=== PATIENT | female | born 1965 | race Caucasian/White ===

== ENCOUNTER → 2021-01-30 | Day surgery (SDC) | payer OTHER ==
[~2021-01-30] MED LIST: FLUO40CA2 PO; IV RINGERS,LACTATED 1000ML 1,000 ML IV ONE; LIDOCAINE 2% PF 5 ML VIAL. ONE; OXCA300T3 PO; PROPOFOL 10 MG/ML (20ML) VIAL. IV ONE
[2021-01-30 09:49] VITALS: BP 99/63
--- NOTE | 2021-02-01 14:09 | PATHOLOGY ---
[facility] Accession Number: [id number] . 01 Material submitted: . rectum - RECTAL POLYP BIOPSY . 01 Clinical history: . POSITIVE COLOGUARD . 02 Diagnosis: Colorectal biopsies, rectal polyps: - Hyperplastic polyps. LBQ 02/01/2021 1157 Local . 02 Comment: There are no adenomatous changes or evidence of malignancy. (JPM/db; 02/01/2021) . 02 Electronically signed: . Prasad Romero MD, Pathologist NPI- [id number] . 01 Gross description: . Received in formalin labeled "Snow, Beba and Rectal polyp biopsy". Received are 2 mason-frias soft tissue fragments ranging from 0.2-0.3 cm. Specimen is entirely submitted in cassette A1.([facility]; 01/31/2021) [facility] 01/31/2021 1604 Local . 02 Pathologist provided ICD-10: K62.1 . 02 CPT . 310635 Specimen Comment: A courtesy copy of this report has been sent to [phone], [phone] Specimen Comment: [id number] Specimen Comment: Report sent to / DR GARCIAS Specimen Comment: A duplicate report has been generated due to demographic updates. Performed at: 01 [facility] [address], [place], [place] [id number] MD Herminio Falcon MD Phone: [phone] Performed at: 02 [facility] [address] [place], [place] [id number] MD Prasad Romero MD Phone: [phone]
== END | disposition home or self-care (01) ==
LOC: ENDOS 08:00
PROVIDERS: ATTEND Internal Medicine Gastroenterology
DX: R19.5 Other fecal abnormalities (principal); K64.0 First degree hemorrhoids; K63.89 Other specified diseases of intestine; K62.1 Rectal polyp; K57.30 Diverticulosis of large intestine without perforation or abscess without bleeding; Z86.010 Personal history of colon polyps; F41.9 Anxiety disorder, unspecified; Z79.899 Other long term (current) drug therapy; Z87.891 Personal history of nicotine dependence; Z98.890 Other specified postprocedural states; Z72.89 Other problems related to lifestyle; Z20.822 Contact with and (suspected) exposure to COVID-19
CPT/HCPCS: 45380; 87426; J2704; 88305